=== PATIENT | male | born 1970 | race Caucasian/White ===

== ENCOUNTER 2016-12-04 10:41 | Emergency (ER) | payer SELFPAY ==
--- NOTE | 2016-12-04 10:55 | EDPHY ---
H & P Time Seen by Provider: 12/04/16 10:54 Constitutional: Initial Vital Signs Temperature (C) 37 C 12/04/16 11:04 Heart Rate 76 12/04/16 11:04 Respiratory Rate 18 12/04/16 11:04 Blood Pressure 133/85 H 12/04/16 11:04 O2 Sat (%) 96 12/04/16 11:04 O2 Delivery Mode Room Air Allergies/Adverse Reactions: No Known Allergies Allergy (Unverified 02/05/13 23:18) Home Medications: Medication Instructions Recorded Miscellaneous Medical Supply [NO 02/05/13 HOME MEDS] Colchicine 0.6 mg PO TID #3 capsule 12/04/16 oxyCODONE IR [Oxycodone Ir (*)] 5 - 10 mg PO Q6 PRN #20 tab 12/04/16 Medical Decision Making ED Course/Re-evaluation: CHIEF COMPLAINT: Gout flare HISTORY OF PRESENT ILLNESS: The patient is a 46 y/o male with a history of gout complaining of a gout flare in his left knee onset 6 days ago. He normally takes allopurinol, but decided to discontinue it because he was concerned about his kidneys and the medication became prohibitively expensive. He has instead been treating his current flare with ibuprofen. His knee has felt hot and sore, but he denies fever or any other symptoms. No calf pain. His pain is aggravated by walking. He denies other complaints. History obtained via [place] speech language pathologist travel. REVIEW OF SYSTEMS: A 10 point review of systems was performed and is negative with the exception of the elements mentioned in the history of present illness. PHYSICAL EXAM: HR, BP, O2 Sat, RR. Temp noted General Appearance: Alert, well hydrated, appropriate, and non-toxic appearing. Head: Atraumatic without scalp tenderness or obvious injury Eyes: Pupils equal, round, reactive to light and accommodation, EOMI, no trauma , no injection. Nose: Atraumatic, no rhinorrhea, clear. Throat: Mucus membranes moist. Neck: Supple, nontender, no lymphadenopathy. Respiratory: No retractions, no distress, no wheezes, and no accessory muscle use. Lungs are clear to auscultation bilaterally. Cardiovascular: Regular rate and rhythm, no murmurs, rubs, or gallops. Good capillary refill all extremities. Gastrointestinal: Abdomen is soft, nontender, non-distended, no masses, no rebound, no guarding, no peritoneal signs. Musculoskeletal: Mild left knee swelling and warmth. Normal active ROM of all extremities, atraumatic. Neurological: Alert, appropriate, and interactive. Nonfocal neuro exam. Skin: No rashes, good turgor, no nodules on palpation. Past medical history: Gout, prediabetes Past surgical history: noncontributory Family history: brother with renal disease Social history: [place]orean-speaking, from [facility] DIFFERENTIAL DIAGNOSIS: The differential diagnosis for the patient's knee pain included but was not limited to gout, fracture, ligamentous injury, contusion, muscular strain, and meniscus injury. MEDICAL DECISION MAKING: This is a 46 y/o male with a history of gout who presents with a 6-day history of left knee pain and warmth. His pain is aggravated significantly by walking. His presentation is consistent with a gout flare. He has not been evaluated for this in over 2 years due to prohibitive cost. Plan for basic labs and treatment with PO colchicine. 1.2mg PO colchicine administered. Labs unremarkable. He will be discharged with OxyIR to use PRN and referral to rheumatology for follow up. I suspect he should return to his prophylactic use of allopurinol and advised him to discuss this with rheumatology. - Data Points Laboratory Results: Laboratory Results 12/04/16 11:20 12/04/16 11:20 12/04/16 12/04/16 12/04/16 11:20 11:20 11:20 WBC 7.25 10^3/uL 10^3/uL (3.80-9.50) RBC 5.15 10^6/uL 10^6/uL (4.40-6.38) Hgb 14.6 g/dL g/dL (13.7-17.5) Hct 43.0 % % (40.0-51.0) MCV 83.5 fL fL (81.5-99.8) MCH 28.3 pg pg (27.9-34.1) MCHC 34.0 g/dL g/dL (32.4-36.7) RDW 13.4 % % (11.5-15.2) Plt Count 218 10^3/uL 10^3/uL (150-400) MPV 10.3 fL fL (8.7-11.7) Neut % (Auto) 49.4 % % (39.3-74.2) Lymph % (Auto) 41.8 % % (15.0-45.0) [place] % (Auto) 6.2 % % (4.5-13.0) Eos % (Auto) 1.7 % % (0.6-7.6) Baso % (Auto) 0.6 % % (0.3-1.7) Nucleat RBC Rel Count 0.0 % % (0.0-0.2) Absolute Neuts (auto) 3.59 10^3/uL 10^3/uL (1.70-6.50) Absolute Lymphs (auto) 3.03 10^3/uL H 10^3/uL (1.00-3.00) Absolute Monos (auto) 0.45 10^3/uL 10^3/uL (0.30-0.80) Absolute Eos (auto) 0.12 10^3/uL 10^3/uL (0.03-0.40) Absolute Basos (auto) 0.04 10^3/uL 10^3/uL (0.02-0.10) Absolute Nucleated RBC 0.00 10^3/uL 10^3/uL (0-0.01) Immature Gran % 0.3 % % (0.0-1.1) Immature Gran # 0.02 10^3/uL 10^3/uL (0.00-0.10) PT 12.9 SEC SEC (12.0-15.0) INR 0.98 (0.83-1.16) APTT 25.8 SEC SEC (23.0-38.0) Sodium 142 mEq/L mEq/L (134-144) Potassium 4.2 mEq/L mEq/L (3.5-5.2) Chloride 110 mEq/L mEq/L (97-110) Carbon Dioxide 19 mEq/l L mEq/l (22-31) Anion Gap 13 mEq/L mEq/L (8-16) BUN 7 mg/dL mg/dL (7-23) Creatinine 0.7 mg/dL mg/dL (0.7-1.3) Estimated GFR > 60 Glucose 98 mg/dL mg/dL (70-100) Calcium 8.8 mg/dL mg/dL (8.5-10.4) Total Bilirubin 0.3 mg/dL mg/dL (0.1-1.4) Conjugated Bilirubin 0.3 mg/dL mg/dL (0.0-0.5) Unconjugated Bilirubin 0.0 mg/dL mg/dL (0.0-1.1) AST 23 IU/L IU/L (17-59) ALT 34 IU/L IU/L (21-72) Alkaline Phosphatase 74 IU/L IU/L (38-126) Total Protein 6.6 g/dL g/dL (6.3-8.2) Albumin 3.8 g/dL g/dL (3.5-5.0) Lipase 767.0 IU/L H IU/L (23-300) Medications Given: Discontinued Medications Colchicine (Colchicine) 1.2 mg PO EDNOW ONE Stop: 12/04/16 11:29 Last Admin: 12/04/16 12:12 Dose: 1.2 mg Departure - Departure Disposition: Home, Routine, Self-Care Clinical Impression: Gout Qualifiers: Gout site: knee Gout etiology: unspecified cause Chronicity: acute Laterality: left Qualified Code(s): M10.9 - Gout, unspecified Condition: Good Instructions: Colchicine (By mouth), Gout (ED) Additional Instructions: 1. You do not have evidence of a knee infection. 2. Take colchicine as prescribed for your gout. 3. Use OxyIR as prescribed when needed for severe pain. This medication will make you sleepy. Do not drive or operate heavy machinery while using it. 4. Elevate your leg above your heart when possible. Keep leg brace in place for comfort while walking. Use crutches if needed to help you walk. Okay to bear weight as tolerated. 5. Follow up with Dr. Farfan, rheumatology, this week. Call tomorrow morning to make an appointment. 6. Return to the ED for fever, worsening redness, or other worsening of condition. 1. Usted no tiene evidencia de tyrell in Referrals: Kateryna Henderson MD [Primary Care Provider] - As per Instructions Moustapha Farfan MD [[facility] [place]] - As per Instructions Stand Alone Forms: Work Excuse Prescriptions: Colchicine 0.6 mg PO TID #3 capsule oxyCODONE IR [Oxycodone Ir (*)] 5 - 10 mg PO Q6 PRN #20 tab PRN Reason: Pain, Severe Report Scribed for: Matthew Francisco Report Scribed by: Rina Vick Date of Report: 12/04/16 Time of Report: 10:56
[2016-12-04 11:05] VITALS: RESP 18; TEMP 98.6
[2016-12-04] MEDS ORDERED: COLCHICINE 0.6 MG CAP/TAB PO ONE (11:28)
[2016-12-04 11:44] LABS: % IMMATURE GRANULYOCYTES 0.3 % (0.0-1.1); ABSOLUTE IMMATURE GRANULOCYTES 0.02 10^3/uL (0.00-0.10); ADD DIFF? NO; ADD MORPH? NO; ADD SCAN? NO; ATYPICAL LYMPHOCYTE FLAG 10 (0-99); FRAGMENT RBC FLAG 0 (0-99); HEMOGLOBIN 14.6 g/dL (13.7-17.5); LEFT SHIFT FLG 0 (0-99); LIPEMIA HEMOLYSIS FLAG 90 (0-99); MEAN CELL HEMOGLOBIN 28.3 pg (27.9-34.1); MEAN CELL VOLUME 83.5 fL (81.5-99.8); MEAN PLATELET VOLUME 10.3 fL (8.7-11.7); PLATELET CLUMPS FLAG 0 (0-99); PLATELET COUNT 218 10^3/uL (150-400); RED BLOOD CELL COUNT 5.15 10^6/uL (4.40-6.38); RED CELL DISTRIBUTION WIDTH 13.4 % (11.5-15.2)
[2016-12-04 11:53] LABS: ALANINE AMINOTRANSFERASE 34 IU/L (21-72); ALBUMIN 3.8 g/dL (3.5-5.0); ALKALINE PHOSPHATASE 74 IU/L (38-126); ANION GAP 13 mEq/L (8-16); ASPARTATE AMINOTRANSFERASE 23 IU/L (17-59); BILIRUBIN,TOTAL 0.3 mg/dL (0.1-1.4); BILIRUBIN-CONJUGATED 0.3 mg/dL (0.0-0.5); CALCIUM 8.8 mg/dL (8.5-10.4); CARBON DIOXIDE 19 mEq/l (22-31); CHLORIDE 110 mEq/L (97-110); CREATININE 0.7 mg/dL (0.7-1.3); GLOMERULAR FILTRATION RATE > 60; GLUCOSE 98 mg/dL (70-100); POTASSIUM 4.2 mEq/L (3.5-5.2); SODIUM 142 mEq/L (134-144); TOTAL PROTEIN 6.6 g/dL (6.3-8.2)
[2016-12-04 11:54] LABS: APTT 25.8 SEC (23.0-38.0); INR 0.98 (0.83-1.16); PROTIME(PATIENT) 12.9 SEC (12.0-15.0)
[2016-12-04] MEDS: COLCHICINE 0.6 MG CAP/TAB PO ONE (13:05)
[2016-12-04 13:17] VITALS: BP 139/68; PULSE 88; O2SAT 95
== END 2016-12-04 13:16 | disposition home or self-care (01) ==
DX: M10.9 Gout, unspecified (principal)
CPT/HCPCS: L1830